=== PATIENT | female | born 2005 | race Caucasian/White ===

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

== ENCOUNTER 2025-03-10 18:22 | Emergency (ER) | payer OTHER, MEDICAID, SELFPAY ==
--- OUTSIDE RECORDS SUMMARY | 2025-03-10 18:25 | XMS_ITS | Clinical Summary ---
Author Organization [facility] [employer] [facility] [employer] Address [address] [place] [address] Care Team Providers Care Transcribing Machine Operator Name Role Phone Sarina Patrick MD Primary Care Provider [phone] Source Comments [facility],non-owned Affiliates and Associated Physician Practices is amultiple site organization consisting of ambulatory clinics and hospital sitesin [place], [place], [place] and [place]. This disclosure is being madepursuant to the Care Everywhere program and may not contain all information available regarding this patient. Last updated 18.[facility] Allergies No known active allergies Medications * Be aware that medications may not be up to date on this document. Alwaysverify current medications with the patient. Etonogestrel (NEXPLANON SC) Activ e Multiple Vitamins-Minera ls (HAIR SKIN AND NAILS FORMULA PO) Active ondansetron, disintegrating, (Zofran ODT) 4 MG tablet Take 1 (one) tablet by mouth every 8 hours as needed for Nausea/Vomiti ng Allow tablet to dissolve on the tongue 20 tablet 3 12/08/2022 Active acetaminophen-c odeine (Tylenol #3) 300-30 MG tablet TAKE 1 TABLET BY MOUTH EVERY 4 TO 6 HOURS WITH FOOD NEEDED 05/17/2024 Active FLUoxetine (PROzac) 40 MG capsule Take 1 (one) capsule by mouth once daily 01/27/2024 Active HYDROcodone-edmond taminophen ([place]) 7.5-325 MG tablet TAKE 1 TABLET BY MOUTH EVERY 4 TO 6 HOURS WITH FOOD NEEDED FOR PAIN 06/28/2024 Active diclofenac sodium EC (Voltaren) 50 MG tablet Take 1 (one) tablet by mouth 2 times daily as needed 40 tablet 3 11/09/2024 Active Active Problems Patient Care Coordination No te Formatting of this note migh t be different from the original. Do you have any cultural preferences or concerns? No 09/15/22 Problem Noted Date Diagnosed Date Migraine 09/15/2022 Assessment & Plan (09/15/2022 7:55 PM JAVA DEVELOPER ARCHITECT): Rayshawn Blum is a 17 year old female with a history of with a history of scoliosis, asthma and concussion 1 year ago. She is evaluated today for headaches that started after the concussion. Headaches occur twice a week, last 2 days, not relief by medication ( motrin or Fioricet) and only improves with sleep, of throbbing quality bilateral temporal distribution, occasional nausea associated with it; denies photophobia, scotomas or auras. Missed school and dance practice due to the pain. PLAN: -Riboflavin 400 mg PO QD -Naprosyn bridge BID for 10 days -Referral to headache clinic Elevated serum creatinine 03/11/2022 Overview (03/26/2022): incidental finding on baseline and F/U surveillance isotretinoin labs: 12/15/21 0.99 03/08/22 0.98 03/14/22 plan F/U BP and cistatin C (as discussed with Nephrology, Dr. Lassiter) Component 03/23/2022 Cystatin Cn0.52 - 1.19 mg/L 0.68 eGFR by MDRD > OR = 60 mL/min/1.73m2 101 Medication coverage 01/19/2022 Overview (01/21/2022): 01/19/22 KEERTHI Raymond ([place]); requires trial and failure of a an oral antibiotic in combination with at least two covered topical acne medications x 3 mos (consistent adherence) Menorrhagia with regular cycle 12/21/2021 Overview (03/11/2022): 12/25/19 start Ekta (per Speech Language Assistant Dr. Pj Butt) 03/18/21 D/C Ekta; start Nexplanon 12/20/21 reviewed alternatives to Nexplanon with Dr. Butt Dysthymia 12/20/2021 Overview (03/11/2022): 12/14/21 [facility], emotionally labile; recent issues of depression reported by Dr. Patrick; discussed reports of isotretinoin-associated mood change 03/09/22 mood stable on isotretinoin Acne vulgaris 12/14/2021 Overview (04/29/2022): perimenarchal onset age 13, gradually worsening after Nexplanon at age 14 (per Dr. Pj Butt; replacement planned at age 16), on 100 mg doxy BID since Aug 2021 (per Telemedicine site) + BP wash + unclear 0.025% tretinoin gel (7 gm/2 mo; per Dr. Patrick; too drying ) iPledge # [id number]; two forms of control are Nexplanon and condoms 12/14/21 [facility] mod inflammatory with a cystic component, face>>back; discussed options; pt/mother refuse topicals/strongly request isotretinoin; screening labs, iPledge enrollment completed, plan to start isotretinoin @ 20 mg/d pending neg HCG Qmo x 2 + baseline labs, f/u 2 mo 12/20/21 baseline labs reviewed TG 26, (FAX from [facility]); plan urine HCG in 1 mo, request [facility] reporting into Epic; called Dr. Patrick to discuss 01/18/22 home HCG neg; Rx isotretinoin 20 mg, #30 01/25/22 isotretinoin denied; Mom would like to pursue using Rx coupon for [id number] purchase; reviewed recommendation for change from Nexplanon to Ekta; Rx re-prescribed, 20 mg, #30; Mom aware of iPLEDGE window 02/07/22 home HCG neg; RF isotretinoin 03/09/22 [facility]; tolerated an estimated 18 caps at 20 mg/d, 03/07/22 labs WNL except sl ^Cr (TG not done), home supply 12 caps; cont 20 mg/day, iPLEDGE requirements reviewed, obtain BP; f/u labs + virtual visit before 04/01 to better coordinate with iPLEDGE requirements 03/23/22 CG T[facility], few new lesions on 20 mg QOD (to extend limited home supply); neg HCG; RF 20mg QD, #30; virtual F/U 1 mo 04/27/22 CG [facility] NS 04/29/22 MyChart msg to cxl F/U; Rayshawn has decided to discontinue taking the Accutane. 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 Shaikh; IMO 202012/14/21 reportedly non-progressive on chiropractic therapy; reports back pain requiring icing Qwk, ibuprophen; not a surgical candidate Assessment & Plan (09/13/2021 6:13 PM JAVA DEVELOPER ARCHITECT): ASSESSMENT: doing well PLAN: 1. Questions solicited and answered. Patient/family voiced understanding to info/instructions given. 2. The diagnosis and findings were explained to the patient, questions answered. 3. Due to issues with acne, referred to Derm 4. Bracing: No 5. Medications Prescribed: none 6. Activity Restrictions: none 7. Follow up: in 1 year(s). scoliosis PA and lateral X-rays Assessment & Plan (06/15/2020 1:48 PM CDT): RADIOLOGY: taken and reviewed. Entire spine - Hairston angles: T7-T12 29 degrees, T12-L4 26 degrees, thoracic kyphosis T5-T12 31.4 degrees, Risser 4 ASSESSMENT: 15 year old 4 month old female with : 1. Scoliosis (and kyphoscoliosis), idiopathic 2. Left hip pain PLAN: 1. Questions solicited and answered. 2. Patient/family voiced understanding to info/instructions given. 3. Continue with existing conservative treatment program, encouraged to continue Schroth exercises at home 4. Medications Prescribed: none 5. Activity Restrictions: as tolerated 6. Weightbearing status: As tolerated 7. Follow up: in 1 year(s) with X-rays of the entire spine. The appointment will be with the . Back pain 07/02/2015 Encounters Date Type Department Care Team Description 12/17/2024 8:41 AM JAVA DEVELOPER ARCHITECT - 12/17/2024 11:59 PM [facility] Hospital Encounter [facility] DIAGNOSTIC RAD CSM [address] [facility] [place] [id number] Tanvir Mosqueda MD Discharge Disposition: Home or Self Care 12/17/2024 8:30 AM JAVA DEVELOPER ARCHITECT Office Visit [facility] [address] [place] [address] [place] [phone] Tanvir Mosqueda MD Cervicalgia (Primary Dx) 12/17/2024 Travel 12/13/2024 Orders Only [facility] [address] [place] [phone] Tanvir Mosqueda MD Scoliosis (and kyphoscoliosis), idiopathic from Last 3 Months Social History Tobacco Use Types Packs/Day Years Used Date Smoking Tobacco: Never Passive Smoke Exposure: Yes Smokeless Tobacco: Never Tobacco Cessation:Counseling Given: Not Answered Alcohol Use Standard Drinks/Week Comments Never 0 (1 standard drink = 0.6 oz pur e alcohol) Comments No Sex and Gender Information Value Date Recorded Sex Assigned at Female 06/07/2023 3:53 PM CDT Legal Sex Female 3:43 PM CDT Gender Identity Female 06/07/2023 3:53 PM CDT Sexual Orientation Straight 06/07/2023 3: 53 PM CDT Last Filed Vital Signs Vital Sign Reading Time Taken Comments Blood Pressure 114/70 10/09/2024 8:00 AM JAVA DEVELOPER ARCHITECT Pulse 123 04/27/2021 10:55 AM CDT per ER Temperature 37.3 C (99.2 F) 04/27/2021 10:55 AM CDT per ER Respiratory Rate 16 04/27/2021 10:55 AM CDT Per ER Oxygen Saturation 99% 04/27/2021 10:55 AM CDT per ER Inhaled Oxygen Concentration - - Weight 60.8 kg (134 lb) 12/17/2024 8:54 AM JAVA DEVELOPER ARCHITECT Height 165 cm (5' 4.96 ) 10/09/2024 8:00 AM JAVA DEVELOPER ARCHITECT Body Mass Index 22.33 10/09/2024 8:00 AM JAVA DEVELOPER ARCHITECT Plan of Treatment Health Maintenance Due Date Last Done Comments HIV SCREENING 01/19/2020 HPV VACCINE (1 - 3-dose series) 01/19/2020 CHLAMYDIA/GONORRHEA SCREENING 2021 MENINGOCOCCAL (Group B) VACCINE SHARED DECISION-MAKING (1 of 2 - Standard) 2021 HEPATITIS C SCREENING 01/14/2023 DTAP/TDAP/TD VACCINES (1 - Tdap) 01/19/2024 HEPATITIS B VACCINE (1 of 3 - 19+ 3-dose series) 01/19/2024 COVID-19 VACCINE (1 - 2023- season) 2024 DEPRESSION SCREENING 11/06/2024 INFLUENZA VACCINE (Season Ended) 2025 08/29/2014, 08/29/2013, 08/04/2012, Additional history exists ZOSTER VACCINE (1 of 2) 2055 HIB VACCINE Aged Out No longer eligi ble based on patient's age to complete this topic MENINGOCOCCAL GROUPS A/C/Y/W VACCINE Aged Out No longer eligible based on patient's age to complete this topic PNEUMOCOCCAL VACCINE Aged Out No long er eligible based on patient's age to complete this topic Procedures Procedure Name Priority Date/Time Associated Diagnosis Comments XR SPINE ENTIRE 2 OR 3VW Routine 12/17/2024 8:51 AM JAVA DEVELOPER ARCHITECT Scoliosis (and kyphoscoliosis), idiopathic from Last 3 Months Results * XR Spine Entire 2 or 3Vw (12/17/2024 8:51 AM JAVA DEVELOPER ARCHITECT) Anatomical Region Laterality Modality Spine Computed Radiogr aphy 12/17/2024 9:17 AM JAVA DEVELOPER ARCHITECT Impressions 12/17/2024 9:28 AM JAVA DEVELOPER ARCHITECT IMPRESSION: Thoracolumbar scoliosis. Report dictated by Augie Cloud MD, (Seed And Fertilizer Specialist). I, Rahul Garcia MD have personally reviewed and interpreted this examination/study. > Interpreting Provider: Rahul Garcia MD on 12/17/2024 9:28 AM Narrative 12/17/2024 9:28 AM JAVA DEVELOPER ARCHITECT PROCEDURE: XR SPINE ENTIRE 2 OR 3VW, DATE/TIME OF EXAM: 12/17/2024 8:51 AM, LOCATION [facility] INDICATION: M41.20: Idiopathic scoliosis and kyphoscoliosis ADDITIONAL CLINICAL INFORMATION: Ordering Provider Reason For Exam: scoliosis COMPARISON: None. FINDINGS: There is scoliosis including a dextro curve measuring 28 degrees from T6 to T12 and a levo curve measuring 31 degrees from T12 to L4. There is no sagittal or coronal plane imbalance. The thoracic kyphosis and lumbar lordosis are maintained. The intervertebral disc spaces are maintained. Procedure Note Rahul Garcia MD - 12/17/2024 PROCEDURE: XR SPINE ENTIRE 2 OR 3VW, DATE/TIME OF EXAM: 12/17/2024 8:51 AM, LOCATION [facility] INDICATION: M41.20: Idiopathic scoliosis and kyphoscoliosis ADDITIONAL CLINICAL INFORMATION: Ordering Provider Reason For Exam: scoliosis COMPARISON: None. FINDINGS: There is scoliosis including a dextro curve measuring 28 degrees from T6to T12 and a levo curve measuring 31 degrees from T12 to L4. There is no sagittal or coronal plane imbalance. The thoracic kyphosis and lumbar lordosis are maintained. The intervertebral disc spaces are maintained. IMPRESSION: Thoracolumbar scoliosis. Report dictated by Augie Cloud MD, (Seed And Fertilizer Specialist). I, Rahul Garcia MD have personally reviewed and interpreted this examination/study. > Interpreting Provider: Rahul Garcia MD on 12/17/2024 9:28 AM Tanvir Mosqueda MD DIAGNOSTIC IMAGING ORDERABLES Fi nal Result from Last 3 Months Insurance [facility] Care Teams Transcribing Machine Operator Relationship Specialty Start Date End Date Sarina Patrick MD PCP - General Pediatrics 07/02/15
--- NOTE | 2025-03-10 18:31 | ED_ITS ---
HPI - URI/Sore Throat General Chief Complaint: Upper Respiratory Infection Stated Complaint: cold symptoms Time Seen by Provider: 03/10/25 18:41 Source: patient and RN notes reviewed Mode of arrival: ambulatory Limitations: no limitations History of Present Illness HPI Narrative: 20-year-old female presents concern for 10 day history of nasal congestion, cough, left ear pain. Reports she has tried multiple [id number] medications without relief. Denies fever. MD elicited complaint: nasal congestion Related Data Home Medications ?Medication ?Instructions ?Recorded ?Confirmed ?Last Taken ?Type etonogestrel 68 mg subdermal 1 implant subdermal ONCE 03/10/25 03/10/25 Unknown History implant (Nexplanon) Allergies Allergy/AdvReac Type Severity Reaction Status Date / Time No Known Allergies Allergy Verified 03/10/25 18:34 Review of Systems Review of Systems: CONSTITUTIONAL: Denies malaise, chills, sweats, or fever. EYES: Denies visual changes, redness, or discharge. ENT: Reports rhinorrhea, congestion, otalgia CARDIOVASCULAR: Denies chest pain, palpitations, or edema. RESPIRATORY: Reports cough. Denies dyspnea. GASTROINTESTINAL: Denies abdominal pain, nausea, vomiting, diarrhea SKIN: Denies rash or itching. MUSCULOSKELETAL: Denies myalgia. NEUROLOGIC: Denies headache. All systems reviewed & are unremarkable except as noted in HPI and below PMFSH Past Medical History Medical History No active medical problems Social History Social History Smoking status: Never smoker Comments At time of signature, agree with nursing past medical, surgical, social and family history. There is no relevant family history pertinent to the presenting complaint Exam Narrative: GENERAL: Well-appearing, well-nourished, and in no acute distress. HEAD: Normocephalic EYES: PERRLA, conjunctivae clear ENT: Nares clear, turbinates edematous and erythematous. Mucous membranes moist. TM pearly miller with dull light reflex bilaterally; no tragal tenderness. Oropharynx not erythematous without lesions. Tonsils not enlarged and without exudate, no drooling, no hoarseness, no trismus, uvula midline. NECK: Supple. No lymphadenopathy CHEST: Clear to auscultation, breath sounds equal. No wheezing, rhonchi, rales, or stridor. No respiratory distress, speaks in full sentences. HEART: Regular rate and rhythm. No murmur heard. SKIN: Warm, dry, no rash. NEURO: Alert and oriented x3. PSYCH: Normal mood and affect Course Course Emergency Course: Patient is aware of diagnosis, understands and agrees to treatment plan. Anticipatory guidance given. Patient agrees to follow-up as directed and is aware of reasons to seek care at the emergency department. Portions of this record may have been created with voice recognition software Level of Care: Express Care Visit Vital Signs Vital signs: Reviewed. MDM - URI/Sore Throat MDM Narrative Medical decision making narrative: Differential diagnosis considered: Venegas virus, strep pharyngitis, allergic rhinitis, upper respiratory tract infection, sinusitis, rhinosinusitis, nasopharyngitis. viral pharyngitis, otitis media, otitis externa, pneumonia, bronchitis, viral cough syndrome, viral syndrome, and influenza. Exam findings show no acute concerns or changes; patient is non-toxic appearing and is in no distress. Patient is appropriate for outpatient treatment and follow-up. Lab Data Attestation: I reviewed the patient's lab results. Critical Care Time Critical Care Time Critical Care Time: No Discharge Plan Discharge Clinical Impression: Sinusitis Patient Disposition: Home Condition: Stable Instructions: Antibiotic Form, Sinusitis (ED) Additional Instructions: Take medications as prescribed Nonprescription pain medications, such as acetaminophen (eg, Tylenol) or ibuprofen (eg, Motrin, Advil), are recommended for pain. Flushing the nose and sinuses with a saline solution several times per day has been proven to decrease pain associated with congestion and shorten the duration of symptoms. Nasal steroids (such as Flonase, 2 sprays in each nostril daily) can help to reduce swelling inside the nose, usually within two to three days. These drugs have few side effects and relieve symptoms in most people. Oral decongestants (pseudoephedrine and phenylephrine) may be helpful if you have associated symptoms of ear pain or fullness. Nasal decongestant sprays, including oxymetazoline (Afrin) and phenylephrine (Stephon-Synephrine), can be used to temporarily treat congestion. However, these sprays should not be used for more than two to three days due to the risk of rebound congestion (when the nose becomes congested constantly unless the medic ation is used repeatedly), possible addiction, and long-term consequences of frequent use, including persistent nasal dryness and crusting, which is very difficult to treat once it has developed. Medications to thin secretions (such as guaifenesin) may help to clear mucus. Please follow-up with your primary care doctor in the next 1-2 days. If you cannot follow-up with your primary care doctor please go to the ED for any urgent issues. If you have any worsening of symptoms or any other concerns please go to the ED immediately. Patient Language: Canadian Prescriptions: New methylprednisolone [Medrol (Colin)] 4 mg tablets,dose pack See Rx Instructions .ROUTE .COMPLEX Qty: 21 0RF Rx Instructions: orally per package directions amoxicillin-pot clavulanate 875-125 mg tablet 1 tablet PO Q12H 10 Days Qty: 20 0RF No Action Nexplanon 68 mg implant 1 implant subdermal ONCE Rx Instructions: as a single dose Follow-up/Referrals: Sarina Patrick MD [Primary Care Provider] - Time of Disposition: 18:51
[2025-03-10 18:32] VITALS: BP 107/74; PULSE 100; RESP 18; TEMP 36.6; O2SAT 98
== END 2025-03-10 18:53 | disposition home or self-care (01) ==
PROVIDERS: Emergency Provider Nurse Practitioner; PCP Pediatrics
DX: J32.9 Chronic sinusitis, unspecified (principal)
CPT/HCPCS: 99213; G0463

== ENCOUNTER 2025-03-20 09:17 | Emergency (ER) | payer OTHER, MEDICAID, SELFPAY ==
--- OUTSIDE RECORDS SUMMARY | 2025-03-20 09:21 | XMS_ITS | Clinical Summary ---
Author Organization [facility] [employer] Address [address] [place] [address] Care Team Providers Care Nursing Education Consultant Name Role Phone Sarina Patrick MD Primary Care Provider [phone] Source Comments [facility],non-owned Affiliates and Associated Physician Practices is amultiple site organization consisting of ambulatory clinics and hospital sitesin [place], [place], [place] and [place]. This disclosure is being madepursuant to the Care Everywhere program and may not contain all information available regarding this patient. Last updated 18.[facility] [employer] Allergies No known active allergies Medications * [...] mouth once daily 01/27/2024 Active HYDROcodone-edmond taminophen ([place]) 7.5-325 MG tablet TAKE 1 TABLET BY [...] 09/15/2022 Assessment & Plan (09/15/2022 7:55 PM BILL BOARD POSTER): Rayshawn Blum is a 17 year old [...] coverage 01/19/2022 Overview (01/21/2022): 01/19/22 KEERTHI Raymond ([place]); requires trial and failure of a an oral antibiotic in combination with at least two covered topical acne medications x 3 mos (consistent adherence) Menorrhagia with regular cycle 12/21/2021 Overview (03/11/2022): 12/25/19 start Ekta (per [employer] Dr. Pj Butt) 03/18/21 D/C Ekta; start [...] Dr. Patrick; too drying ) iPledge # [id number]; two forms of control are Nexplanon and [...] like to pursue using Rx coupon for [id number] purchase; reviewed recommendation for change from Nexplanon [...] lives with Mom, who is a [employer] forging die finisher 12/14/21 HS raymond; participated in dance for [...] candidate Assessment & Plan (09/13/2021 6:13 PM BILL BOARD POSTER): ASSESSMENT: doing well PLAN: 1. Questions solicited [...] be with the . Back pain 07/02/2015 Social History Tobacco Use Types Packs/Day Years [...] Comments Blood Pressure 114/70 10/09/2024 8:00 AM BILL BOARD POSTER Pulse 123 04/27/2021 10:55 AM CDT per ER Temperature 37.3 C (99.2 F) 04/27/2021 10:55 AM CDT per ER Respiratory Rate 16 04/27/2021 10:55 AM CDT Per ER Oxygen Saturation 99% 04/27/2021 10:55 AM CDT per ER Inhaled Oxygen Concentration - - Weight 60.8 kg (134 lb) 12/17/2024 8:54 AM BILL BOARD POSTER Height 165 cm (5' 4.96 ) 10/09/2024 8:00 AM BILL BOARD POSTER Body Mass Index 22.33 10/09/2024 8:00 AM BILL BOARD POSTER Plan of Treatment Health Maintenance Due Date Last Done Comments HIV SCREENING 01/19/2020 HPV VACCINE (1 - 3-dose series) 01/19/2020 CHLAMYDIA/GONORRHEA SCREENING 2021 MENINGOCOCCAL (Group B) VACCINE SHARED DECISION-MAKING (1 of 2 - Standard) 2021 HEPATITIS C SCREENING 01/14/2023 DTAP/TDAP/TD VACCINES (1 - Tdap) 01/19/2024 HEPATITIS B VACCINE (1 of 3 - 19+ 3-dose series) 01/19/2024 COVID-19 VACCINE (1 - season) 2024 DEPRESSION SCREENING 11/06/2024 INFLUENZA VACCINE [...] on patient's age to complete this topic Insurance [facility] * Guarantor: RAYSHAWN BLUM Account Type Relation to Patient Date of Phone Billing Address Personal/Family [address] [place] [address] Care Teams Nursing Education Consultant Relationship Specialty Start Date End Date Sarina Patrick MD PCP - General Pediatrics 07/02/15
[2025-03-20 09:25] VITALS: BP 119/68; PULSE 100; RESP 18; TEMP 36.6; O2SAT 98
--- NOTE | 2025-03-20 09:50 | ED.URI ---
HPI - URI/Sore Throat General Chief Complaint: Upper Respiratory Infection Stated Complaint: sore throat Time Seen by Provider: 03/20/25 09:30 Source: patient Mode of arrival: ambulatory Limitations: no limitations History of Present Illness HPI Narrative: Aristeo is a 20-year-old female patient presenting to the clinic today with complaints of sore throat x1 day. She reports her symptoms started last night. Her niece tested positive for strep yesterday and she was drinking after her niece. No fever. Related Data Home Medications Medication Instructions Recorded Confirmed Last Taken Type etonogestrel 68 mg subdermal 1 implant subdermal ONCE 03/10/25 03/10/25 Unknown History implant (Nexplanon) Allergies Allergy/AdvReac Type Severity Reaction Status Date / Time No Known Allergies Allergy Verified 03/20/25 09:38 Review of Systems Review of Systems: Pertinent positives per HPI. Patient denies any fever, chills, rash, headache, visual changes, dizziness, cough, shortness of breath, chest pain, palpitations, nausea, vomiting, diarrhea, constipation, abdominal pain, or any urinary issues. PMFSH Past Medical History Medical History No active medical problems Social History Social History Smoking status: Never smoker Comments At the time of my signature, I reviewed and agree with the nursing past medical, surgical, social, and family history. There is no relevant family history pertinent to the patient complaint. Exam Narrative: General: Well-developed, well nourished, in no apparent distress Head: Normocephalic, atraumatic Eyes: Pupils equally round and reactive to light bilaterally, EOM intact, sclera and conjunctive clear, no discharge, lids normal Ears: TMs intact and clear, ear canals clear, no drainage, grossly hearing normal. Nose: Nares patent, no discharge, no inflammation, no sinus tenderness. Mouth: Oral pharynx red with bilateral tonsillar enlargement with exudate to bilateral tonsils, without lesions or masses, good dentition, MMM. Neck: Supple, trachea midline, enlargement of anterior cervical nodes, no thyroid masses or goiter palpable. Cardio: Regular rate and rhythm, s1 and s2 normal, no murmur appreciated. Resp: Clear to auscultation bilaterally, no rhonchi, rales, wheezing or rubs Course Course Emergency Course: Portions of this record may have been created with voice recognition software. Level of Care: Express Care Visit Vital Signs Vital signs: Vital Signs Temperature 36.6 C 03/20/25 09:25 Pulse Rate 100 03/20/25 09:25 Respiratory Rate 18 03/20/25 09:25 Blood Pressure 119/68 03/20/25 09:25 Pulse Oximetry 98 03/20/25 09:25 Oxygen Delivery Room Air 03/20/25 09:25 Temperature 36.6 C 03/20/25 09:25 Pulse Rate 100 03/20/25 09:25 Respiratory Rate 18 03/20/25 09:25 Blood Pressure 119/68 03/20/25 09:25 Pulse Oximetry 98 03/20/25 09:25 Oxygen Delivery Room Air 03/20/25 09:25 Vital signs reviewed MDM - URI/Sore Throat MDM Narrative Medical decision making narrative: At the time of visit patient is resting comfortably on the exam table. Patient appears to be nontoxic. Labs: Strep test was positive in the clinic today. Plan: Patient has strep pharyngitis. Prescription for amoxicillin was sent to the pharmacy. Work note was given. Supportive measures were discussed with the patient and they voiced understanding discharge instructions and agrees to treatment plan. Return precautions reviewed Differential Diagnosis Differential diagnosis: Likely upper respiratory infection, otitis media, sinusitis, viral infection, bronchitis, influenza, pharyngitis and other (COVID) Discharge Plan Discharge Clinical Impression: Acute streptococcal pharyngitis Patient Disposition: Home Condition: Stable Instructions: Antibiotic Form, Strep Throat (ED) Additional Instructions: Strep test was positive in the clinic today. Change her toothbrush in 24 hours after initiation of the antibiotics Take prescription medications only as prescribed-amoxicillin Increase fluids and stay well hydrated Tylenol/motrin for pain/fever Flonase and OTC antihistamines as directed Vicks vapor rub to open sinuses Sinus rinses for congestion Cepacol spray, cough drops, throat lozenges, warm tea with honey/lemon, gargle salt water to soothe throat BRAT diet for diarrhea Clear liquids x 24 hours then advance as tolerated for nausea/vomiting Go to the ED if you develop a worsening in your condition- high fever not controlled by Tylenol or Motrin, dehydration, weakness, lethargy, shortness of breath, or chest pain. Follow up with your PCP in 3-5 days if symptoms persist. Patient Language: Martiniquais Prescriptions: New amoxicillin 400 mg/5 mL suspension for reconstitution 880 mg PO BID 10 Days Qty: 220 0RF No Action Nexplanon 68 mg implant 1 implant subdermal ONCE Rx Instructions: as a single dose methylprednisolone [Medrol ([place])] 4 mg tablets,dose pack See Rx Instructions .ROUTE .COMPLEX Qty: 21 0RF Rx Instructions: orally per package directions amoxicillin-pot clavulanate 875-125 mg tablet 1 tablet PO Q12H 10 Days Qty: 20 0RF Follow-up/Referrals: Sarina Patrick MD [Primary Care Provider] - Stand Alone Forms: Work/School Release IP Time of Disposition: 09:37 Quality NIHSS Nursing Documentation ED NIHSS nursing documentation: reviewed/agree
[2025-03-20 11:13] LABS: EDSTREPNEGPOS1 Positive (Negative)
== END 2025-03-20 09:46 | disposition home or self-care (01) ==
PROVIDERS: Emergency Provider Nurse Practitioner Family; PCP Pediatrics
DX: J02.0 Streptococcal pharyngitis (principal)
CPT/HCPCS: 87880; 99213; G0463

== ENCOUNTER 2025-06-20 09:59 | Emergency (ER) | payer OTHER, MEDICAID, SELFPAY ==
--- OUTSIDE RECORDS SUMMARY | 2025-06-20 10:05 | XMS_ITS | Clinical Summary ---
Author Organization [facility] [employer] Address [address] [place] [address] Care Team Providers Care Accredited Legal Secretary Name Role Phone Sarina Patrick MD Primary Care Provider [phone] Source Comments [facility],non-owned Affiliates and Associated Physician Practices is amultiple site organization consisting of ambulatory clinics and hospital sitesin [place], [place], [place] and [place]. This disclosure is being madepursuant to the Care Everywhere program and may not contain all information available regarding this patient. Last updated 18.[facility] [employer] Allergies No known active allergies Medications * [...] mouth once daily 01/27/2024 Active HYDROcodone-edmond taminophen ([place]) 7.5-325 MG tablet TAKE 1 TABLET BY [...] 09/15/2022 Assessment & Plan (09/15/2022 7:55 PM SENIOR WRITER): Rayshawn Blum is a 17 year old [...] coverage 01/19/2022 Overview (01/21/2022): 01/19/22 KEERTHI Raymond ([place]); requires trial and failure of a an oral antibiotic in combination with at least two covered topical acne medications x 3 mos (consistent adherence) Menorrhagia with regular cycle 12/21/2021 Overview (03/11/2022): 12/25/19 start Ekta (per C[employer] Dr. Pj Butt) 03/18/21 D/C Ekta; start [...] (7 gm/2 mo; per Dr. Patrick; too drying) iPledge # [id number]; two forms of control are Nexplanon and [...] like to pursue using Rx coupon for [id number] purchase; reviewed recommendation for change from Nexplanon [...] lives with Mom, who is a [employer] globe tester 12/14/21 HS raymond; participated in dance for [...] candidate Assessment & Plan (09/13/2021 6:13 PM SENIOR WRITER): ASSESSMENT: doing well PLAN: 1. Questions solicited [...] Comments Blood Pressure 114/70 10/09/2024 8:00 AM SENIOR WRITER Pulse 123 04/27/2021 10:55 AM CDT per ER Temperature 37.3 C (99.2 F) 04/27/2021 10:55 AM CDT per ER Respiratory Rate 16 04/27/2021 10:55 AM CDT Per ER Oxygen Saturation 99% 04/27/2021 10:55 AM CDT per ER Inhaled Oxygen Concentration - - Weight 60.8 kg (134 lb) 12/17/2024 8:54 AM SENIOR WRITER Height 165 cm (5' 4.96) 10/09/2024 8:00 AM SENIOR WRITER Body Mass Index 22.33 10/09/2024 8:00 AM SENIOR WRITER Plan of Treatment Health Maintenance Due Date [...] season) 2024 DEPRESSION SCREENING 11/06/2024 INFLUENZA VACCINE (#1) 2025 4, 08/29/2013, 08/04/2012, Additional history exists ZOSTER VACCINE (1 of 2) 2055 HIB VACCINE Aged Out No longer eligi ble based on patient's age to complete this topic MENINGOCOCCAL GROUPS A/C/Y/W VACCINE Aged Out No longer eligible based on patient's age to complete this topic PNEUMOCOCCAL VACCINE Aged Out No long er eligible based on patient's age to complete this topic Insurance [facility] * Guarantor: RAYSHAWN BLUM Account Type Relation to Patient Date of Phone Billing Address Personal/Family [address] [place] [address] Care Teams Accredited Legal Secretary Relationship Specialty Start Date End Date Sarina Patrick MD PCP - General Pediatrics 07/02/15
--- NOTE | 2025-06-20 10:14 | ED.EAR ---
HPI - Ear Problem General Chief complaint: Ear Stated complaint: ear infection Time Seen by Provider: 06/20/25 10:14 Source: patient Mode of arrival: ambulatory Limitations: no limitations History of Present Illness HPI Narrative: [age] female presented for complaint of bilateral ear pain. Onset 2 days. She does left ear has been hurting intermittently for 6 weeks. She states felt like headache. Patient has been taking and ibuprofen for pain past 2 days. had to leave work early yesterday due to the pain. Denies tinnitus, dizziness, ear drainage, nasal congestion, nausea vomiting, fevers or chills. MD Complaint: ear pain Related Data Home Medications ?Medication ?Instructions ?Recorded ?Confirmed ?Last Taken ?Type etonogestrel 68 mg subdermal 1 implant subdermal ONCE 03/10/25 03/10/25 Unknown History implant (Nexplanon) Allergies Allergy/AdvReac Type Severity Reaction Status Date / Time codeine Allergy Intermediate Rash Verified 06/20/25 10:12 Review of Systems Review of Systems: CONSTITUTIONAL: Denies malaise, chills, or fever. EYES: Denies visual changes, redness, or discharge. ENT: Denies rhinorrhea, congestion, sinus pain, and sore throat. Reports ear pain CARDIOVASCULAR: Denies chest pain, palpitations, or edema. RESPIRATORY: Denies cough or dyspnea. GASTROINTESTINAL: Denies abdominal pain, nausea, vomiting, diarrhea SKIN: Denies rash or itching. MUSCULOSKELETAL: Denies myalgia. NEUROLOGIC: Denies headache. All systems reviewed & are unremarkable except as noted in HPI and below PMFSH Past Medical History Medical History No active medical problems Social History Social History Smoking status: Never smoker Comments At time of signature, agree with nursing past medical, surgical, social and family history. There is no relevant family history pertinent to the presenting complaint Exam Narrative: GENERAL: Well-appearing HEAD: Normocephalic EYES: conjunctivae clear ENT: Nares clear. Mucous membranes moist. Bilateral TMs normal light reflex, no erythema, no effusion; canals not erythematous, no drainage, no tragal tenderness. Oropharynx not erythematous without lesions. no drooling, no hoarseness, no trismus, uvula midline. NECK: Supple. No lymphadenopathy CHEST: Clear to auscultation, breath sounds equal. HEART: Regular rate and rhythm. SKIN: Warm, dry, no rash. NEURO: Alert and oriented x3. PSYCH: Normal mood and affect Course Course Emergency Course: Patient is aware of diagnosis, understands and agrees to treatment plan. Anticipatory guidance given. Patient agrees to follow-up as directed and is aware of reasons to seek care at the emergency department. Portions of this record may have been created with voice recognition software Level of Care: Express Care Visit Vital Signs Vital signs: Reviewed Medical Decision Making MDM Narrative Medical decision making narrative: Discussed physical exam findings, no apparent otitis media noted. Advised supportive measures and signs/symptoms to go to the ER. Patient is appropriate for outpatient treatment and follow-up. Differential Diagnosis Differential Diagnosis: Coronavirus, strep pharyngitis, allergic rhinitis, upper respiratory tract infection, sinusitis, rhinosinusitis, nasopharyngitis, viral pharyngitis, otitis media, otitis externa, eustachian tube dysfunction, foreign body, cerumen impaction. Discharge Plan Discharge Clinical Impression: Otalgia of both ears Patient Disposition: Home Condition: Stable Instructions: Antibiotic Form, Earache (ED) Additional Instructions: Recommendations: antihistamine such as Zyrtec or Cece You can add Flonase nasal spray, 1 spray in each nostril once daily until symptoms improve Motrin or Tylenol every 8 hours as needed to reduce fever, pain Please schedule a follow-up visit with your personal physician If your symptoms persist, change or worsen significantly, go to the emergency department for further evaluation. Patient Language: [place] Islander Prescriptions: No Action amoxicillin 400 mg/5 mL suspension for reconstitution 880 mg PO BID 10 Days Qty: 220 0RF Nexplanon 68 mg implant 1 implant subdermal ONCE Rx Instructions: as a single dose methylprednisolone [Medrol ([place])] 4 mg tablets,dose pack See Rx Instructions .ROUTE .COMPLEX Qty: 21 0RF Rx Instructions: orally per package directions amoxicillin-pot clavulanate 875-125 mg tablet 1 tablet PO Q12H 10 Days Qty: 20 0RF Follow-up/Referrals: Sarina Patrick MD [Primary Care Provider] - Stand Alone Forms: Work/School Release IP Time of Disposition: 10:20
[2025-06-20 10:18] VITALS: BP 110/67; PULSE 92; RESP 20; TEMP 36.3; O2SAT 99
== END 2025-06-20 10:28 | disposition home or self-care (01) ==
PROVIDERS: Emergency Provider Nurse Practitioner Family; PCP Pediatrics
DX: H92.03 Otalgia, bilateral (principal)
CPT/HCPCS: 99211; G0463

== ENCOUNTER 2025-07-11 10:49 | Emergency (ER) | payer OTHER, MEDICAID, SELFPAY ==
[2025-07-11 10:59] VITALS: BP 112/72; PULSE 100; RESP 16; TEMP 36.1; O2SAT 99
--- NOTE | 2025-07-11 11:13 | ED_ITS ---
HPI - URI/Sore Throat General Chief Complaint: Upper Respiratory Infection Stated Complaint: Sore throat Time Seen by Provider: 07/11/25 11:02 Source: patient, RN notes reviewed and old records reviewed Mode of arrival: ambulatory Limitations: no limitations History of Present Illness HPI Narrative: 20 year old female who presents to [facility] care with complaints of sinus congestion and drainage scratchy sore throat since yesterday with sore throat which pretty much subsided since taking Mucinex. 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 Patient reports that she did have a headache yesterday but she has frequent headaches, she denies any ear pain. acute cough or body aches or any known fevers MD elicited complaint: sore throat, rhinorrhea and nasal congestion Onset (ago): day(s) (2) Severity: mild Treatments prior to arrival: other (Mucinex) Related Data Home Medications ?Medication ?Instructions ?Recorded ?Confirmed ?Last Taken ?Type etonogestrel 68 mg subdermal 1 implant subdermal ONCE 03/10/25 07/11/25 Unknown History implant (Nexplanon) naproxen 500 mg tablet mg 07/11/25 Unknown History Allergies Allergy/AdvReac Type Severity Reaction Status Date / Time codeine Allergy Mild Rash Verified 07/11/25 10:57 Review of Systems Review of Systems: CONSTITUTIONAL: Denies malaise, chills, sweats, or fever. EYES: Denies visual changes, redness, or discharge. ENT: Reports rhinorrhea, congestion,no sinus pain, no otalgia and positive sore throat which is better today. CARDIOVASCULAR: Denies chest pain, palpitations, or edema. RESPIRATORY: Reports no cough.? Denies dyspnea. GASTROINTESTINAL: Denies abdominal pain, nausea, vomiting, diarrhea SKIN: Denies rash or itching. MUSCULOSKELETAL: Denies myalgia. NEUROLOGIC: reports headache. All systems reviewed & are unremarkable except as noted in HPI and below PMFSH Past Medical History Medical History No active medical problems Social History Social History Smoking status: Never smoker Comments At time of signature, agree with nursing past medical, surgical, social and family history. There is no relevant family history pertinent to the presenting complaint Exam Narrative: GENERAL: Well-appearing, well-nourished, and in no acute distress. HEAD: Normocephalic EYES: PERRLA, conjunctivae clear ENT: Nares clear, turbinates edematous and erythematous, clear discharge. Mucous membranes moist. TM pearly miller with dull light reflex bilaterally; no tragal tenderness. Oropharynx erythematous without lesions. Tonsils red minimally enlarged and without exudate, no drooling, no hoarseness, no trismus, uvula midline. NECK: Supple. No lymphadenopathy CHEST: Clear to auscultation, breath sounds equal. No wheezing, rhonchi, rales, or stridor. No respiratory distress, speaks in full sentences. no cough noted SAO2 99% on room air HEART: Regular rate and rhythm. No murmur heard. SKIN: Warm, dry, no rash. NEURO: Alert and oriented x3. PSYCH: Normal mood and affect Course Course Emergency Course: Patient is aware of diagnosis, understands and agrees to treatment plan.? Anticipatory guidance given.? Patient agrees to follow-up as directed and is aware of reasons to seek care at the emergency department. Portions of this record may have been created with voice recognition software Level of Care: Express Care Visit Vital Signs Vital signs: Vital Signs Temperature 36.1 C L 07/11/25 10:59 Pulse Rate 100 07/11/25 10:59 Respiratory Rate 16 07/11/25 10:59 Blood Pressure 112/72 07/11/25 10:59 Pulse Oximetry 99 07/11/25 10:59 Oxygen Delivery Room Air 07/11/25 10:59 Temperature 36.1 C L 07/11/25 10:59 Pulse Rate 100 07/11/25 10:59 Respiratory Rate 16 07/11/25 10:59 Blood Pressure 112/72 07/11/25 10:59 Pulse Oximetry 99 07/11/25 10:59 Oxygen Delivery Room Air 07/11/25 10:59 Reviewed MDM - URI/Sore Throat MDM Narrative Medical decision making narrative: Differential diagnosis considered: Venegas virus, strep pharyngitis, allergic rhinitis, upper respiratory tract infection, sinusitis, rhinosinusitis, nasopharyngitis. viral pharyngitis, otitis media, otitis externa, pneumonia, bronchitis, viral cough syndrome, viral syndrome, and influenza.? Exam findings show no acute concerns or changes; patient is non-toxic appearing and is in no distress.? Patient is appropriate for outpatient treatment and follow-up. Differential Diagnosis Differential diagnosis: Likely upper respiratory infection, pharyngitis and other (strep pharyngitis) Medical Records Attestation: I reviewed the patient's medical records. Lab Data Attestation: I reviewed the patient's lab results. Lab results narrative: strep screen positive Critical Care Time Critical Care Time Critical Care Time: No Discharge Plan Discharge Clinical Impression: Strep throat Patient Disposition: Home Condition: Stable Instructions: Antibiotic Form, Strep Throat (ED) Additional Instructions: You tested positive for Group A strep . Take the entire course of antibiotics. Throw away your current toothbrush and begin using a new toothbrush in 48 hours in order to prevent re-infection. Sanitize all reusable water bottles Zyrtec Claritin or Cece daily may include Sudafed for sinus congestion . Do not share items with others. Salt water gargles may alleviate some of the throat discomfort. You can take Tylenol or ibuprofen per the package instructions for pain/fever. You must be on oral antibiotics for 24 hours before you can return to work If your symptoms persist, change or worsen significantly before you can contact your personal physician then please, without delay, go to the emergency department for further evaluation. Follow-up with PCP in 7-10 days or sooner if needed Follow up with PCP soon in regards to your blood pressure which is elevated above threshold for referral. Blood pressure above 120/80 may indicate pre-hyp ertension. Patient Language: Nauruan Prescriptions: New amoxicillin 500 mg capsule 500 mg PO TID Qty: 21 0RF Rx Instructions: complete all doses of oral antibiotic No Action Nexplanon 68 mg implant 1 implant subdermal ONCE Rx Instructions: as a single dose naproxen 500 mg tablet Follow-up/Referrals: Sarina Patrick MD [Primary Care Provider, Pediatrics] Stand Alone Forms: Work/School Release IP Time of Disposition: 11:28 Quality Jeffry Coma Scale Eyes: Open Verbal: Oriented and Alert Motor: Follows Commands [place] Coma Total Score: 15
--- OUTSIDE RECORDS SUMMARY | 2025-07-11 11:18 | XMS_ITS | Clinical Summary ---
Author Organization [facility] Address [address] [place] [address] Care Team Providers Care Blocking Machine Tender Name Role Phone Sarina Patrick MD Primary Care Provider [phone] Source Comments [facility],non-owned Affiliates and Associated Physician Practices is amultiple site organization consisting of ambulatory clinics and hospital sitesin [place], [place], [place] and [place]. This disclosure is being madepursuant to the Care Everywhere program and may not contain all information available regarding this patient. Last updated 18.[facility] Allergies No known active allergies Medications * [...] mouth once daily 01/27/2024 Active HYDROcodone-edmond taminophen ([place]) 7.5-325 MG tablet TAKE 1 TABLET BY [...] 09/15/2022 Assessment & Plan (09/15/2022 7:55 PM SEAT BUILDER): Rayshawn Blum is a 17 year old [...] coverage 01/19/2022 Overview (01/21/2022): 01/19/22 KEERTHI Raymond ([place]); requires trial and failure of a an oral antibiotic in combination with at least two covered topical acne medications x 3 mos (consistent adherence) Menorrhagia with regular cycle 12/21/2021 Overview (03/11/2022): 12/25/19 start Ekta (per [employer] Dr. Pj Butt) 03/18/21 D/C Ekta; start [...] per Dr. 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 Questions solicited [...] Comments Blood Pressure 114/70 10/09/2024 8:00 AM SEAT BUILDER Pulse 123 04/27/2021 10:55 AM CDT per ER Temperature 37.3 C (99.2 F) 04/27/2021 10:55 AM CDT per ER Respiratory Rate 16 04/27/2021 10:55 AM CDT Per ER Oxygen Saturation 99% 04/27/2021 10:55 AM CDT per ER Inhaled Oxygen Concentration - - Weight 60.8 kg (134 lb) 12/17/2024 8:54 AM SEAT BUILDER Height 165 cm (5' 4.96) 10/09/2024 8:00 AM SEAT BUILDER Body Mass Index 22.33 10/09/2024 8:00 AM SEAT BUILDER Plan of Treatment Health Maintenance Due Date [...] patient's age to complete this topic Insurance [facility] * Guarantor: RAYSHAWN BLUM Account Type Relation to Patient Date of Phone Billing Address Personal/Family [address] [place] [address] Care Teams Blocking Machine Tender Relationship Specialty Start Date End Date Sarina Patrick MD PCP - General Pediatrics 07/02/15
[2025-07-11 11:25] LABS: EDSTREPNEGPOS1 Positive (Negative)
== END 2025-07-11 11:31 | disposition home or self-care (01) ==
PROVIDERS: Emergency Provider Registered Nurse; PCP Pediatrics
DX: J02.0 Streptococcal pharyngitis (principal)
CPT/HCPCS: 87880; 99213; G0463